=== PATIENT | female | born 1935 ===

== ENCOUNTER 2022-02-22 09:30 | Inpatient (IN) | payer OTHER ==
[~2022-02-22] VITALS: Ht 152.4 cm; Wt 69.9 kg
[2022-02-22] MEDS ORDERED: JANUMET 50-1,01 EACH PO (14:42)
[2022-02-22] MEDS ORDERED: IRBESARTAN75 MG PO (14:43)
[2022-02-22] MEDS ORDERED: GABAPEN PO (14:43)
[2022-02-22] MEDS ORDERED: HYDRALAZINE HCL25 MG PO (14:44)
[2022-02-22] MEDS ORDERED: FEOSOL325 MG PO (14:45)
[2022-02-22] MEDS ORDERED: FOLIC A PO (14:45)
[2022-02-22] MEDS ORDERED: [UNRECOGNIZED DRUG - OTHER] PO (14:45)
[2022-02-22] MEDS ORDERED: CLONAZEPAM0.5 MG PO (14:46)
[2022-02-22] MEDS ORDERED: SINGULAIR10 MG PO (14:47)
[2022-02-26] MEDS ORDERED: FOLIC ACID0.8 M1 PO (07:55)
[2022-02-26] MEDS ORDERED: PREVACID15 M1 (07:56)
[2022-02-26] MEDS ORDERED: GABAPENTIN400 MG PO (07:56)
== END 2022-03-07 15:31 | disposition home or self-care (01) | DRG 330 ==
LOC: SURG 16:21 → SURH 16:21 → SURG 02-23 09:19 → SURH 02-25 09:30 → SURG 03-07 15:31
PROVIDERS: ADMIT Colon & Rectal Surgery; ATTEND Colon & Rectal Surgery
PROC: 07BB0ZZ Excision of Mesenteric Lymphatic, Open Approach (ICD-10-PCS; 2022-02-27)
PROC: 07BC0ZZ Excision of Pelvis Lymphatic, Open Approach (ICD-10-PCS; 2022-02-27)
PROC: 0DBU0ZZ Excision of Omentum, Open Approach (ICD-10-PCS; 2022-02-27)
PROC: 0DTF0ZZ Resection of Right Large Intestine, Open Approach (ICD-10-PCS; principal; 2022-02-27 16:00)
PROC: 4A12X4Z Monitoring of Cardiac Electrical Activity, External Approach (ICD-10-PCS; 2022-02-28)
PROC: 02HV33Z Insertion of Infusion Device into Superior Vena Cava, Percutaneous Approach (ICD-10-PCS; 2022-03-01)
DX: C18.2 Malignant neoplasm of ascending colon (principal); D68.59 Other primary thrombophilia; I48.21 Permanent atrial fibrillation; K91.89 Other postprocedural complications and disorders of digestive system; K56.7 Ileus, unspecified; N99.4 Postprocedural pelvic peritoneal adhesions; D20.1 Benign neoplasm of soft tissue of peritoneum; K66.8 Other specified disorders of peritoneum; I27.20 Pulmonary hypertension, unspecified; E78.5 Hyperlipidemia, unspecified; E11.42 Type 2 diabetes mellitus with diabetic polyneuropathy; I11.9 Hypertensive heart disease without heart failure; Z53.31 Laparoscopic surgical procedure converted to open procedure; Z86.711 Personal history of pulmonary embolism; Z79.01 Long term (current) use of anticoagulants